=== PATIENT | female | born 1975 ===

== ENCOUNTER 2016-10-05 17:17 | Emergency (ER) | payer BC, MEDICAID ==
[2016-10-05 17:31] VITALS: BP 139/63
--- NOTE | 2016-10-05 18:21 | UC ---
Lower Extremity/Ankle HPI - HPI Summary HPI Summary: 41 female presents with complaints of right foot pain after an injury that occurred 2 days ago after a van door fell onto her foot. Patient states she has had trouble walking however is able and is able to bear weight. Patient has been taking acetaminophen with some relief. Has not taken any medication today. States she decided to come in today because pain has not improved and she has had some radiation into the medial side of her foot. States it is sharp and achey. Admits to swelling and bruising. PMHx significant for DM, HTN, COPD, Asthma. - History of Current Complaint Chief Complaint: UCLowerExtremity Stated Complaint: RIGHT FOOT INJURY Time Seen by Provider: 10/05/16 18:02 Hx Obtained From: Patient ?: No Onset/Duration: Sudden Onset, Lasting Days - 2, Still Present, Worse Since Severity Initially: Mild Severity Currently: Mild Pain Intensity: 9 Pain Scale Used: 0-10 Numeric Aggravating Factor(s): Standing, Ambulation Alleviating Factor(s): Rest Able to Bear Weight: Yes - Allergies/Home Medications Allergies/Adverse Reactions: Allergies Allergy/AdvReac Type Severity Reaction Status Date / Time Medroxyprogesterone Allergy Hives Verified 10/05/16 17:32 [From Depo-Provera] Penicillins Allergy Hives Verified 10/05/16 17:32 Home Medications: Home Medications Albuterol HFA INHALER* [Ventolin HFA Inhaler*] 2 puff INH Q4H PRN 10/05/16 [ History Confirmed 10/05/16] Budesonide/Formote 160/4.5(NF) [Symbicort 160/4.5 (NF)] 2 puff INH BID 10/05/16 [History Confirmed 10/05/16] Cyclobenzaprine TAB* [Flexeril 10 MG TAB*] 10 mg PO BID 10/05/16 [History Confirmed 10/05/16] Lovastatin [Altoprev] 20 mg PO DAILY 10/05/16 [History Confirmed 10/05/16] metFORMIN* [Glucophage 500 MG TAB *] 500 mg PO BID 10/05/16 [History Confirmed 10/05/16] PMH/Surg Hx/FS Hx/Imm Hx Endocrine History: Diabetes Cardiovascular History: Hypertension Respiratory History: COPD, Asthma - Surgical History Surgical History: Yes Surgery Procedure, Year, and Place: Tubal - Family History Known Family History: Positive: Diabetes - Social History Alcohol Use: Rare Substance Use Type: None Smoking Status (MU): Heavy Every Day Tobacco Smoker - Immunization History Vaccination Up to Date: Yes Review of Systems Constitutional: Negative Skin: Bruising - edema Respiratory: Negative Cardiovascular: Negative Motor: Negative Neurovascular: Negative, Decreased Sensation - chronic due to diabetic neuropathy of distal feet/toes Musculoskeletal: Arthralgia, Decreased ROM, Edema - right foot/ankle, Myalgia Neurological: Negative All Other Systems Reviewed And Are Negative: Yes Physical Exam Triage Information Reviewed: Yes Appearance: Well-Appearing, No Pain Distress, Well-Nourished, Obese Vital Signs: Initial Vital Signs Temp 97.1 F 10/05/16 17:22 Pulse 82 10/05/16 17:22 Resp 17 10/05/16 17:22 BP 139/63 10/05/16 17:22 Pulse Ox 99 10/05/16 17:22 BP noted. patient diagnosed with HTN, encouraged to have follow up appointment with PCP to have re-checked within 2 weeks. Vital Signs Reviewed: Yes Eyes: Positive: Conjunctiva Clear ENT: Positive: Hearing grossly normal Neck: Positive: Supple, Nontender Respiratory: Positive: Chest non-tender, Lungs clear, Normal breath sounds, No respiratory distress, No accessory muscle use Cardiovascular: Positive: RRR, No Murmur, Pulses Normal - 2+ pedal b/l, Brisk Capillary Refill Musculoskeletal: Positive: Strength Intact, ROM Intact - however causes pain, Edema @ - minimal, b/l edema LE, Other: - knee and hip intact and without pain. Full ROM. gait limited due to pain but able, favoring left side. Neurological: Positive: Alert - sensation intact b/l besides chronic diabetic neuropathy of distal foot, Muscle Tone Normal Skin Exam: Normal Skin: Positive: Other - no significant ecchymosis noted, mimimally on anterior top of foot and around medial foot. no crepitus, step off or obvious deformity noted. Diagnostics - Radiology right foot Xray Interpretation: No Acute Changes - SOFT TISSUE SWELLING. NO ACUTE FRACTURE. Radiology Interpretation Completed By: Radiologist Lower Extremity Course/Dx - Course Course Of Treatment: given ibuprofen for pain and inflammation. told to continue while at home. RICE. x-ray obtained and negative for fracture. Follow up with PCP if symptoms persist. Aware of worsening signs and symptoms to watch out for. - Differential Dx/Diagnosis Differential Diagnosis/HQI/PQRI: Contusion, Dislocation, Fracture (Closed), Sprain, Strain Provider Diagnoses: right foot contusion, right foot sprain Discharge - Discharge Plan Condition: Stable Disposition: HOME Patient Education Materials: Foot Contusion (ED), Foot Sprain (ED) Additional Instructions: Take prescribed medication to help with pain and inflammation. Take with food. Rest, ice and elevate the foot. Avoid standing and walking on it as much as possible. Use brace for extra support. Follow up with PCP. If symptoms worsen or do not improve please seek medical attention for further evaluation.
[2016-10-05] MEDS ORDERED: Ketorolac INJ* 60 MG/2 ML VIAL IM ONE (18:43)
--- NOTE | 2016-10-05 18:43 | RAD ---
INDICATION: Right foot pain COMPARISON: None TECHNIQUE: AP, lateral, and oblique views were obtained. FINDINGS: There is no acute fracture or dislocation. There are small Achilles and plantar calcaneal spurs. There is soft tissue swelling over the dorsum of the forefoot. IMPRESSION: SOFT TISSUE SWELLING. NO ACUTE FRACTURE.
[2016-10-05] MEDS ORDERED: Ibuprofen TAB* 400 MG PO ONE (18:45)
== END 2016-10-05 19:16 | disposition home or self-care (01) ==
LOC: UCCORT 17:17
DX: S90.31XA Contusion of right foot, initial encounter (principal); S93.601A Unspecified sprain of right foot, initial encounter; W20.8XXA Other cause of strike by thrown, projected or falling object, initial encounter; Y93.9 Activity, unspecified; Y92.9 Unspecified place or not applicable; Z32.02 Encounter for pregnancy test, result negative; E11.9 Type 2 diabetes mellitus without complications; Z79.84 Long term (current) use of oral hypoglycemic drugs; I10 Essential (primary) hypertension; J44.9 Chronic obstructive pulmonary disease, unspecified; Z88.0 Allergy status to penicillin; Z88.8 Allergy status to other drugs, medicaments and biological substances; F17.210 Nicotine dependence, cigarettes, uncomplicated
CPT/HCPCS: 84702; 99203; A9270-GY; G0463